=== PATIENT | female | born 1930 | race Caucasian/White ===

== ENCOUNTER → 2019-07-01 | Outpatient (CLI) | payer MEDICARE ==
[~2019-07-01] MED LIST: ASPIRIN 81M81 MG/TA2 PO; ASPIRIN E.C. 8181 MG PO; B-12 500 MCG PO; BACTRIM DS 8001 TAB PO; BENAZEPRIL HCL/1 TA1 PO; CALCIUM + D 6001 TA1 PO; CALMOSEPTINE OI71 GM TP; CATAPRES-TTS 10.1 M1 TD; COLACE 100100 MG/CAP PO; COUMADIN 5MG5 MG/TAB PO; COUMADIN 6MG6 MG/TAB PO; COUMADIN4 MG PO; COUMADIN5 MG PO; CRANBERRY 100 M1 SGL PO; DESENEX TP; DULCOLAX S10 MG/SUPP RC; FLAGYL500 MG PO; FOLIC ACID 40400 MCG PO; ILOTYCIN5 MG/GM OS; LEXAPRO20 MG PO; LIPITOR 10MG10 MG PO; LIQUIFILM TEARS15 ML OU; LOVENOX 8080 MG/0.8 SQ; LOVENOX150 MG/ML SQ; MELATONIN5 M1 SL; MIACALCIN NASA3.7 ML NS; MILK OF MA400 MG/52 PO; MIRALAX PA17 GM/Dose PO; MULTAQ400 MG PO; NIZORAL SHAMPO120 M1 TP; NS 1000 10001000 ML IV; OMNICEF 300MG300 MG PO; PRINIVIL10 MG PO; PRINIVIL20 MG PO; PROBIOTIC ACID1 EAC3 PO; QUESTRAN4 GM/9 GM PO; REQUIP 1MG T1 MG/TAB PO; ROCEPHIN VIA1 G/VIAL IV; SEROQUEL 2525 MG/TAB PO; TOPROL XL 25MG25 MG PO; TOPROL XL100 MG PO; TYLENOL 325MG325 MG PO; TYLENOL 500MG500 MG PO; ULTRAM 50MG TAB50 MG PO; VANCOCIN H125 MG/CAP PO; VANCOCIN H250 MG/CAP PO; XANAX .25M0.25 MG/TA PO
[2019-07-01 11:11] LABS: HEMATOCRIT 40.7 % (37.0-47.0); HEMOGLOBIN 13.1 g/dl (12.5-16.0); MEAN CELL VOLUME 96 fl (80.0-100.0); MEAN CORPUSCULAR HEMOGLOBIN 31 pg (27.0-31.0); MEAN CORPUSCULAR HGB CONC 32 g/dl (33.0-37.0); MEAN PLATELET VOLUME 9.9 fl (7.4-10.4); PLATELET COUNT 335 K/mm3 (130-400); RED BLOOD COUNT 4.26 M/mm3 (4.10-5.30); REDCELL DISTRIBUTION WIDTH-CV 14.7 % (11.5-14.5)
[2019-07-01 11:20] LABS: BILIRUBIN,TOTAL 0.3 mg/dL (0.0-1.0); CALCIUM 9.4 mg/dL (8.4-10.2); CREATININE, serum 0.53 (0.52-1.25); POTASSIUM 3.7 mmol/L (3.4-5.0); TOTAL PROTEIN 6.3 gm/dL (6.4-8.2)
== END ==
LOC: ZCOL.LAB 10:59
PROVIDERS: Internal Medicine
DX: E86.0 Dehydration (principal); R53.81 Other malaise

== ENCOUNTER 2019-07-03 17:30 | Emergency (ER) | payer MEDICARE ==
[~2019-07-03] VITALS: Ht 165.1 cm; Wt 102.3 kg
[~2019-07-03 17:30] MED LIST changes: -CATAPRES-TTS 10.1 M1 TD; -LOVENOX150 MG/ML SQ
[2019-07-03 17:46] VITALS: BP 111/40; TEMP 98.3
[2019-07-03 19:04] LABS: BASO # 0.1 (0.0-0.2); BASO % 0.9 % (0.0-2.0); EOS # 0.4 (0.0-0.7); EOS % 6.1 % (0-4.0); GRAN # 3.7 (1.4-6.5); GRAN % 55.8 % (42.2-75.2); HEMATOCRIT 44.4 % (37.0-47.0); HEMOGLOBIN 14.6 g/dl (12.5-16.0); LYMPH # 1.8 (1.2-3.4); LYMPH % 26.8 % (20.0-51.0); MEAN CELL VOLUME 92 fl (80.0-100.0); MEAN CORPUSCULAR HEMOGLOBIN 30 pg (27.0-31.0); MEAN CORPUSCULAR HGB CONC 33 g/dl (33.0-37.0); MEAN PLATELET VOLUME 9.5 fl (7.4-10.4); MONO # 0.7 (0.1-0.6); MONO % 10.1 % (1.7-9.3); PLATELET COUNT 327 K/mm3 (130-400); RED BLOOD COUNT 4.81 M/mm3 (4.10-5.30); REDCELL DISTRIBUTION WIDTH-CV 14.5 % (11.5-14.5)
[2019-07-03 19:10] LABS: INR 1.2 (0.8-3.0); PROTHROMBIN TIME 14.3 SECONDS (9.7-12.8)
[2019-07-03 19:17] LABS: ALANINE AMINOTRANSFERASE < 6 U/L (9-52); ALBUMIN 3.7 gm/dL (3.5-5.0); ALKALINE PHOSPHATASE 76 U/L (50-136); ANION GAP 9 mmol/L (7-16); AST,SGOT 19 U/L (15-37); BILIRUBIN,TOTAL 0.6 mg/dL (0.0-1.0); BLOOD UREA NITROGEN 5 mg/dL (7-17); C-REACTIVE PROTEIN 1.8 mg/dL (0.0-0.9); CALCIUM 9.9 mg/dL (8.4-10.2); CARBON DIOXIDE 28 mmol/L (22-30); CHLORIDE 104 mmol/L (98-107); CREATININE, serum 0.61 (0.52-1.25); GLUCOSE 109 mg/dL (74-106); POTASSIUM 3.8 mmol/L (3.4-5.0); SODIUM 141 mmol/L (137-145); TOTAL PROTEIN 7.8 gm/dL (6.4-8.2)
[2019-07-03 19:31] LABS: TROPONIN-I < 0.012 ng/mL (0.000-0.035)
[2019-07-03 21:01] LABS: COLLECTION METHOD CATHETER
[2019-07-03 21:06] LABS: MUCOUS Present /lpf; PH 7 (5-8); SQUAMOUS EPITHELIAL 0-2 /hpf; URINE APPEARANCE Clear; URINE BACTERIA None Seen /hpf; URINE BILIRUBIN Negative (NEGATIVE); URINE BLOOD Negative (NEGATIVE); URINE COLOR Yellow; URINE GLUCOSE Negative (NEGATIVE); URINE KETONE Negative (NEGATIVE); URINE LEUKOCYTE ESTERASE Negative (NEGATIVE); URINE NITRATE Negative (NEGATIVE); URINE PROTEIN(semi-quant) Negative (NEGATIVE); URINE UROBILINOGEN Negative (NEGATIVE)
[2019-07-03] MEDS ORDERED: LOVENOX150 MG/ML SQ (22:10)
[2019-07-03] MEDS ORDERED: CATAPRES-TTS 10.1 M1 TD (22:10)
[2019-07-03 22:52] VITALS: PULSE 79
== END 2019-07-03 22:52 | disposition home or self-care (01) ==
LOC: COL.ER 17:30
PROVIDERS: Emergency Medicine
DX: I10 Essential (primary) hypertension (principal); F03.90 Unspecified dementia, unspecified severity, without behavioral disturbance, psychotic disturbance, mood disturbance, and anxiety; R13.10 Dysphagia, unspecified; R41.0 Disorientation, unspecified; Z79.82 Long term (current) use of aspirin
CPT/HCPCS: J1650; J7030